=== PATIENT | male | born 1985 | race Caucasian/White ===

== ENCOUNTER 2016-10-18 13:37 | Emergency (ER) | payer OTHER ==
[2016-10-18 15:01] LABS: HEMOGLOBIN 14.8 gm/dl (14.0-17.5); RED BLOOD COUNT 4.86 M/UL (4.20-5.50); WHITE BLOOD COUNT 3.8 K/UL (4.5-11.0)
[2016-10-18 15:31] LABS: BUN/CREATININE RATIO 19 (0-10)
== END 2016-10-18 16:50 | disposition home or self-care (01) ==
LOC: ER1 13:37
PROVIDERS: Emergency Medicine
DX: R07.9 Chest pain, unspecified (principal); R11.10 Vomiting, unspecified; M54.6 Pain in thoracic spine; R06.02 Shortness of breath; F17.200 Nicotine dependence, unspecified, uncomplicated
CPT/HCPCS: 36415; 71010; 80053; 82550; 82553; 83874; 83880; 84484; 85025; 85379; 93005; 99284

== ENCOUNTER → 2016-10-22 | Outpatient (CLI) | payer OTHER | LOC: HEART 5 07:30 | DX: R07.9 Chest pain, unspecified (principal); R06.02 Shortness of breath | CPT/HCPCS: 78452; A9502 ==

== ENCOUNTER 2016-11-06 15:31 | Emergency (ER) | payer OTHER ==
[2016-11-06 16:51] LABS: HEMOGLOBIN 13.6 gm/dl (14.0-17.5); RED BLOOD COUNT 4.45 M/UL (4.20-5.50); WHITE BLOOD COUNT 5.4 K/UL (4.5-11.0)
[2016-11-06 17:14] LABS: BUN/CREATININE RATIO 20 (0-10)
== END 2016-11-06 18:25 | disposition home or self-care (01) ==
LOC: ER1 15:31
PROVIDERS: Physician Assistant
DX: R07.9 Chest pain, unspecified (principal); F17.210 Nicotine dependence, cigarettes, uncomplicated
CPT/HCPCS: 36415; 71020; 80053; 80307; 81001; 82550; 82553; 83874; 84484; 85025; 85379; 93005; 99285

== ENCOUNTER 2022-04-24 03:15 | Emergency (ER) | payer OTHER ==
[~2022-04-24 03:15] MED LIST: ZOFRAN4 MG PO
[2022-04-24 12:32] LABS: BUN/CREATININE RATIO 22 (0-10)
[2022-04-24 12:34] LABS: HEMOGLOBIN 14.3 gm/dl (14.0-17.5); RED BLOOD COUNT 4.71 M/UL (4.20-5.50); WHITE BLOOD COUNT 6.2 K/UL (4.5-11.0)
== END 2022-04-24 08:42 | disposition home or self-care (01) ==
LOC: ER1 03:15
PROVIDERS: Emergency Medicine
DX: I45.6 Pre-excitation syndrome (principal); I10 Essential (primary) hypertension; F17.220 Nicotine dependence, chewing tobacco, uncomplicated; Z88.5 Allergy status to narcotic agent; Z87.442 Personal history of urinary calculi
CPT/HCPCS: 71045; 80053; 83880; 84484; 85025; 85610; 85730; 99285